=== PATIENT | male | born 1995 | race Hispanic/Latino ===

== ENCOUNTER 2019-03-07 19:54 | Emergency (ER) | payer BC ==
[2019-03-07] MEDS ORDERED: NA CHLORIDE 0.9% 1,000 ML ONE (20:49)
[2019-03-07] MEDS ORDERED: KETOROLAC 30 MG/ML INJ ONE (20:49)
[2019-03-07 21:00] LABS: Absolute Lymphocytes (CBC) 2.8 K/uL (0.7-4.9); Basophils % 1.2 % (0-1.3); Hematocrit 43.5 % (39.6-49.0); Lymphocytes % 33.1 % (15.3-44.8); Protime INR 0.97; RBC Red Blood Cell Count 4.79 M/uL (4.33-5.43)
[2019-03-07 21:15] LABS: ALT/SGPT 26 U/L (12-78); AST/SGOT 15 U/L (15-37); Albumin 4.1 g/dL (3.4-5.0); Alkaline Phosphatase 74 U/L (45-117); BUN Blood Urea Nitrogen 14 mg/dL (7-18); Bicarbonate 29 mmol/L (21-32); Bilirubin Direct < 0.1 mg/dL (0-0.2); Bilirubin Total 0.2 mg/dL (0.2-1.0); Glucose Level 109 mg/dL (74-106); Magnesium 2.1 mg/dL (1.8-2.4); NT PRO-BNP 11 pg/mL (<125); Potassium 3.6 mmol/L (3.5-5.1); Protein, Total 7.4 g/dL (6.4-8.2); Sodium Level 143 mmol/L (136-145); Troponin (Emerg Dept Use Only) < 0.02 ng/mL (0.0-0.045)
--- NOTE | 2019-03-07 23:27 | ER ---
Nurse's Notes [facility] Name: Sarbjit Riley Age: 23 yrs Sex: Male : 1995 Arrival Date: 03/07/2019 Time: 19:56 Bed 13 Private MD: Diagnosis: Other chest pain Presentation: 03/07 19:59 Presenting complaint: Patient states: "All day I've had this shortness of breath and I aj1 have this really bad pain when I cough right about here (patient points to center of chest) and when I touch my chest there it really hurts" Patient reports cough, congestion. Denies fever. Transition of care: patient was not received from another setting of care. Onset of symptoms was March 07, 2019. Risk Assessment: Do you want to hurt yourself or someone else? Patient reports no desire to harm self or others. Initial Sepsis Screen: Does the patient meet any 2 criteria? No. Patient's initial sepsis screen is negative. Does the patient have a suspected source of infection? Yes: Productive cough/pneumonia. Care prior to arrival: None. 19:59 Method Of Arrival: Ambulatory aj1 19:59 Acuity: INESSA 4 aj1 Triage Assessment: 20:01 General: Appears in no apparent distress. comfortable, Behavior is calm, cooperative, aj1 appropriate for age. Pain: Complains of pain in mid-sternal area Pain currently is 3 out of 10 on a pain scale. Neuro: Level of Consciousness is awake, alert, obeys commands, Oriented to person, place, time, situation. Cardiovascular: Patient's skin is warm and dry. Respiratory: Airway is patent Respiratory effort is even, unlabored, Respiratory pattern is regular, symmetrical. Historical: - Allergies: 20:01 No Known Allergies; aj1 - Home Meds: 20:01 Claritin Oral [Active]; Flonase Nasal [Active]; aj1 - PMHx: 20:01 seasonal allergies; aj1 - Immunization history:: Flu vaccine is not up to date. - Social history:: Smoking status: Patient/guardian denies using tobacco. - Ebola Screening: : Patient denies travel to an Ebola-affected area in the 21 days before illness onset. Screenin:15 Abuse screen: Denies threats or abuse. Nutritional screening: No deficits noted. jb4 Tuberculosis screening: No symptoms or risk factors identified. Fall Risk None identified. Assessment: 20:15 General: Appears in no apparent distress. uncomfortable, Behavior is calm, cooperative, jb4 appropriate for age. Pain: Complains of pain in chest Pain does not radiate. Pain currently is 3 out of 10 on a pain scale. Quality of pain is described as stabbing, Pain began 2-3 days ago. Is continuous. Neuro: Level of Consciousness is awake, alert, obeys commands, Oriented to person, place, time, situation. Cardiovascular: Patient's skin is warm and dry. Respiratory: Airway is patent Respiratory effort is even, unlabored, Respiratory pattern is regular, symmetrical. GI: No deficits noted. No signs and/or symptoms were reported involving the gastrointestinal system. : No deficits noted. No signs and/or symptoms were reported regarding the genitourinary system. EENT: No deficits noted. No signs and/or symptoms were reported regarding the EENT system. Derm: Skin is intact, Skin is pink, warm \\T\\ dry. Musculoskeletal: Circulation, motion, and sensation intact. Range of motion: intact in all extremities. 21:30 Reassessment: Patient appears in no apparent distress at this time. Patient and/or jb4 family updated on plan of care and expected duration. Pain level reassessed. Patient is alert, oriented x 3, equal unlabored respirations, skin warm/dry/pink. 22:30 Reassessment: Patient appears in no apparent distress at this time. Patient and/or jb4 family updated on plan of care and expected duration. Pain level reassessed. Patient is alert, oriented x 3, equal unlabored respirations, skin warm/dry/pink. 23:53 Reassessment: Patient appears in no apparent distress at this time. Patient and/or jb4 family updated on plan of care and expected duration. Pain level reassessed. Patient is alert, oriented x 3, equal unlabored respirations, skin warm/dry/pink. Vital Signs: 20:01 BP 136 / 87; Pulse 78; Resp 18; Temp 97.9; Pulse Ox 98% on R/A; Weight 75.75 kg (R); aj1 Height 5 ft. 6 in. (167.64 cm) (R); Pain 3/10; 21:45 BP 128 / 85; Pulse 57; Resp 16; Pulse Ox 98% on R/A; jb4 23:00 BP 110 / 71; Pulse 77; Resp 16; Pulse Ox 100% on R/A; jb4 20:01 Body Mass Index 26.95 (75.75 kg, 167.64 cm) aj1 ED Course: 19:56 Patient arrived in ED. cl3 20:00 Triage completed. aj1 20:01 Arm band placed on Patient placed in an exam room. aj1 20:05 Jensen Abad PA is PHCP. cp 20:05 Naresh Jean MD is Attending Physician. cp 20:06 Tom Maldonado, RN is Primary Nurse. jb4 20:15 Patient has correct armband on for positive identification. Bed in low position. Call jb4 light in reach. Side rails up X 1. Pulse ox on. NIBP on. 20:15 Patient maintains SpO2 saturation greater than 95% on room air. jb4 20:45 Inserted saline lock: 20 gauge in right antecubital area, using aseptic technique. Blood collected. 22:52 XRAY Chest Pa And Lat (2 Views) In Process Unspecified. EDMS 23:53 No provider procedures requiring assistance completed. IV discontinued, intact, jb4 bleeding controlled, No redness/swelling at site. Pressure dressing applied. Administered Medications: 20:50 Drug: NS 0.9% 1000 ml Route: IV; Rate: 1 bolus; Site: right antecubital; 22:00 Follow up: Response: No adverse reaction; IV Status: Completed infusion; IV Intake: jb4 1000ml 20:53 Drug: TORadol 30 mg Route: IVP; Site: right antecubital; 21:20 Follow up: Response: No adverse reaction; Pain is decreased jb4 Intake: 22:00 IV: 1000ml; Total: 1000ml. jb4 Outcome: 23:26 Discharge ordered by . cp 23:53 Discharged to home ambulatory, with significant other. jb4 23:53 Condition: stable 23:53 Discharge instructions given to patient, significant other, Instructed on discharge instructions, follow up and referral plans. medication usage, Demonstrated understanding of instructions, follow-up care, medications, Prescriptions given X 1. 23:55 Patient left the ED. jb4 Signatures: Dispatcher [employer] EDWA Rebeca Lange RN RN aj1 Jensen Abad PA PA cp Bryson, James, RN RN jb4 Habalo, Shahnaz Jenkins, Mariam cl3
--- NOTE | 2019-03-07 23:27 | EDPHYS ---
Physician Documentation [facility] Name: Sarbjit Riley Age: 23 yrs Sex: Male : 1995 Arrival Date: 03/07/2019 Time: 19:56 Bed 13 Private MD: ED Physician Naresh Jean HPI: 03/07 20:15 This 23 yrs old Male presents to ER via Ambulatory with complaints of Chest cp Pain, Shortness Of Breath. 20:15 The patient or guardian reports chest pain that is located primarily in the substernal cp area. 20:15 The pain does not radiate. Associated signs and symptoms: Pertinent positives: cp shortness of breath, Pertinent negatives: abdominal pain, diaphoresis, headache, lower extremity pain, lower extremity swelling, near syncope, syncope. The chest pain is described as sharp. Duration: The patient or guardian reports a single episode, that is still ongoing. Modifying factors: the symptoms are aggravated by cough, palpation of area. Severity of pain: in the emergency department the pain is unchanged despite home interventions. Historical: - Allergies: 20:01 No Known Allergies; aj1 - Home Meds: 20:01 Claritin Oral [Active]; Flonase Nasal [Active]; aj1 - PMHx: 20:01 seasonal allergies; aj1 - Immunization history:: Flu vaccine is not up to date. - Social history:: Smoking status: Patient/guardian denies using tobacco. - Ebola Screening: : Patient denies travel to an Ebola-affected area in the 21 days before illness onset. ROS: 20:20 Constitutional: Negative for body aches, chills, fever, poor PO intake. cp 20:20 Eyes: Negative for injury, pain, redness, and discharge. cp 20:20 ENT: Negative for drainage from ear(s), ear pain, sore throat, difficulty swallowing, difficulty handling secretions. 20:20 Cardiovascular: Positive for chest pain, Negative for edema, palpitations. 20:20 Respiratory: Positive for shortness of breath, Negative for cough, wheezing. 20:20 Abdomen/GI: Negative for abdominal pain, nausea, vomiting, and diarrhea, black/tarry stool, rectal bleeding. 20:20 Back: Negative for radiated pain. 20:20 Skin: Negative for rash. 20:20 Neuro: Negative for altered mental status, headache, weakness. 20:20 All other systems are negative. Exam: 20:20 ECG was reviewed by the Attending Physician. cp 20:25 Constitutional: The patient appears in no acute distress, alert, awake, cp non-diaphoretic, non-toxic, well developed, well nourished. 20:25 Head/Face: Normocephalic, atraumatic. cp 20:25 Eyes: Periorbital structures: Conjunctiva: normal, no exudate, no injection, Sclera: no appreciated abnormality, Lids and lashes: appear normal, bilaterally. 20:25 ENT: External ear(s): are unremarkable, Nose: is normal, Mouth: is normal, Posterior pharynx: is normal, airway is patent, no erythema, no exudate. 20:25 Chest/axilla: Inspection: normal, Palpation: crepitus, is not appreciated, tenderness, that is moderate, of the mid-sternal area, that partially reproduces the patient's complaints. 20:25 Cardiovascular: Rate: normal, Rhythm: regular, Pulses: Pulses are 2+ in right radial artery and left radial artery. Edema: is not appreciated, JVD: is not appreciated. 20:25 Respiratory: the patient does not display signs of respiratory distress, Respirations: normal, no use of accessory muscles, no retractions, no splinting, no tachypnea, labored breathing, is not present, Breath sounds: are clear throughout, no decreased breath sounds, no stridor, no wheezing. 20:25 Abdomen/GI: Inspection: abdomen appears normal, Bowel sounds: normal, in all quadrants, Palpation: abdomen is soft and non-tender, in all quadrants, rebound tenderness, is not appreciated, voluntary guarding, is not appreciated, involuntary guarding, is not appreciated. 20:25 Back: pain, is absent, ROM is normal. 20:25 Skin: no rash present. 20:25 Neuro: Orientation: to person, place \T\ time. Mentation: is normal, Motor: moves all fours, strength is normal. Vital Signs: 20:01 BP 136 / 87; Pulse 78; Resp 18; Temp 97.9; Pulse Ox 98% on R/A; Weight 75.75 kg (R); aj1 Height 5 ft. 6 in. (167.64 cm) (R); Pain 3/10; 21:45 BP 128 / 85; Pulse 57; Resp 16; Pulse Ox 98% on R/A; jb4 23:00 BP 110 / 71; Pulse 77; Resp 16; Pulse Ox 100% on R/A; jb4 20:01 Body Mass Index 26.95 (75.75 kg, 167.64 cm) aj1 MDM: 20:10 Patient medically screened. cp 21:00 Differential diagnosis: abnormal EKG, acute pericarditis, cholecystitis, Cholelithiasis cp costochondritis, esophagitis, gastritis, gastroesophageal reflux disease (GERD), peptic ulcer disease, pleurisy, pneumonia, pneumothorax, pulmonary embolus. 23:25 Data reviewed: vital signs, nurses notes, lab test result(s), EKG, radiologic studies, cp plain films, and as a result, I will discharge patient. 23:25 Test interpretation: by ED physician or midlevel provider: ECG, plain radiologic cp studies. 23:25 Counseling: I had a detailed discussion with the patient and/or guardian regarding: the cp historical points, exam findings, and any diagnostic results supporting the discharge/admit diagnosis, lab results, radiology results, to return to the emergency department if symptoms worsen or persist or if there are any questions or concerns that arise at home. Response to treatment: the patient's symptoms have markedly improved after treatment. Special discussion: Based on the patient's history, exam, and Dx evaluation, there is no indication for emergent intervention or inpatient Tx. It is understood by the patient/guardian that if the Sx's persist or worsen they need to return immediately for re-evaluation. 03/07 20:31 Order name: Basic Metabolic Panel; Complete Time: 21:18 cp 03/07 21:18 Interpretation: Normal except: CL 109; GLUC 109. cp 03/07 20:31 Order name: CBC with Diff; Complete Time: 21:18 cp 03/07 20:31 Order name: LFT's; Complete Time: 21:18 cp 03/07 20:31 Order name: Magnesium; Complete Time: 21:18 cp 03/07 20:31 Order name: NT PRO-BNP; Complete Time: 21:18 cp 03/07 20:31 Order name: PT-INR; Complete Time: 21:18 cp 03/07 20:05 Order name: EKG; Complete Time: 20:05 cp 03/07 20:05 Order name: EKG - Nurse/Tech; Complete Time: 20:28 cp 03/07 20:31 Order name: Troponin (emerg Dept Use Only); Complete Time: 21:18 cp 03/07 20:31 Order name: Cardiac monitoring; Complete Time: 20:47 03/07 20:31 Order name: IV Saline Lock; Complete Time: 20:47 03/07 21:45 Order name: XRAY Chest Pa And Lat (2 Views) 03/07 20:31 Order name: Labs collected and sent; Complete Time: 20:47 cp 03/07 20:31 Order name: O2 Per Protocol; Complete Time: 20:47 cp 03/07 20:31 Order name: O2 Sat Monitoring; Complete Time: 20:47 cp EC:20 Rate is 65 beats/min. Rhythm is regular. NC interval is normal. QRS interval is cp prolonged at 104 msec. QT interval is normal. Interpreted by me. Reviewed by me. Administered Medications: 20:50 Drug: NS 0.9% 1000 ml Route: IV; Rate: 1 bolus; Site: right antecubital; 22:00 Follow up: Response: No adverse reaction; IV Status: Completed infusion; IV Intake: jb4 1000ml 20:53 Drug: TORadol 30 mg Route: IVP; Site: right antecubital; 21:20 Follow up: Response: No adverse reaction; Pain is decreased jb4 Disposition: 03/08 06:13 Co-signature as Attending Physician, Naresh Jean MD. Disposition: 03/07/19 23:26 Discharged to Home. Impression: Other chest pain. - Condition is Stable. - Discharge Instructions: Nonspecific Chest Pain. - Prescriptions for ketorolac 10 mg Oral tablet - take 1 tablet by ORAL route every 6 hours As needed not to exceed 40 mg in 24hrs; 20 tablet. - Medication Reconciliation Form, Thank You Letter, Antibiotic Education, Prescription Opioid Use form. - Follow up: Private Physician; When: 2 - 3 days; Reason: Worsening of condition. - Problem is new. - Symptoms have improved. Signatures: Dispatcher [employer] EDMS Rebeca Lange RN RN aj1 Jensen Abad PA PA Tom Crisostomo RN RN jb4 Shahnaz Chavez Naresh Jean MD MD Corrections: (The following items were deleted from the chart) 10/23 23:55 23:26 03/07/2019 23:26 Discharged to Home. Impression: Other chest pain. Condition is jb4 Stable. Forms are Medication Reconciliation Form, Thank You Letter, Antibiotic Education, Prescription Opioid Use. Follow up: Private Physician; When: 2 - 3 days; Reason: Worsening of condition. Problem is new. Symptoms have improved. cp
[2019-03-08 00:41] VITALS: TEMP 97.9
[2019-03-08 00:43] VITALS: BP 110/71; O2SAT 100
--- NOTE | 2019-03-08 07:27 | RAD REPORT ---
EXAM DESCRIPTION: RAD - Chest Pa And Lat (2 Views) - 03/07/2019 10:52 pm CLINICAL HISTORY: CHEST PAIN, shortness of breath COMPARISON: None. TECHNIQUE: PA and lateral views of the chest were obtained. FINDINGS: The lungs are clear. Heart size is normal and central vasculature is within normal limit s. No pleural effusion or pneumothorax seen. No acute bony finding noted. No aortic abnormality. IMPRESSION: No acute cardiopulmonary process.
--- NOTE | 2019-03-08 08:29 | EKG ---
Test Date: 2019-03-07 Test Time: 20:14:29 Automotive Lube Technician: ANIYAH MEASUREMENT RESULTS: Intervals: Rate: 65 MS: 158 QRSD: 104 QT: 356 QTc: 370 Omega: P: 62 MS: 158 QRS: 57 T: 54 INTERPRETIVE STATEMENTS: Normal sinus rhythm Incomplete right bundle branch block Borderline ECG No previous ECG available for comparison Electronically Signed On 03-08-19 08:27:38 CDT by Michelet Ybarra
== END 2019-03-07 23:55 | disposition home or self-care (01) ==
LOC: ER 19:54
DX: R07.89 Other chest pain (principal); J30.2 Other seasonal allergic rhinitis
CPT/HCPCS: 96361; 93005; 85025; 80048; 36415; 83735; 85610; 80076; 84484; 83880; 71046; 96374; 99284; J7030

== ENCOUNTER 2019-03-28 12:30 | Emergency (ER) | payer BC ==
--- NOTE | 2019-03-28 14:03 | EDPHYS ---
Physician Documentation [facility] Name: Sarbjit Riley Age: 23 yrs Sex: Male : 1995 Arrival Date: 03/28/2019 Time: 12:33 Bed 23 Private MD: ED Physician Yann Andrea HPI: 03/28 14:29 This 23 yrs old Male presents to ER via Ambulatory with complaints of Fever, kb Neck Swelling. 14:31 The patient or guardian complains of swelling. The symptoms are located on the right kb posterior aspect of neck and right lateral aspect of neck. Onset: The symptoms/episode began/occurred this morning. Context: The problem was sustained at home, The neck injury/problem resulted from from unknown cause. Associated signs and symptoms: Pertinent positives: fever, body aches. The pain does not radiate. Modifying factors: The symptoms are alleviated by nothing. the symptoms are aggravated by nothing. Severity of symptoms: At their worst the symptoms were moderate, in the emergency department the symptoms are unchanged. The patient has not experienced similar symptoms in the past. The patient has not recently seen a physician. Historical: - Allergies: 12:45 No Known Allergies; hb - Home Meds: 12:45 Claritin Oral [Active]; Flonase Nasal [Active]; hb - PMHx: 12:45 seasonal allergies; hb - PSHx: 12:45 Heart ablation; hb - Immunization history:: Adult Immunizations up to date. - Social history:: Smoking status: Patient/guardian denies using tobacco. - Ebola Screening: : No symptoms or risks identified at this time. ROS: 14:29 ENT: Negative for injury, pain, and discharge, Cardiovascular: Negative for chest pain, kb palpitations, and edema, Respiratory: Negative for shortness of breath, cough, wheezing, and pleuritic chest pain, Abdomen/GI: Negative for abdominal pain, nausea, vomiting, diarrhea, and constipation, Back: Negative for injury and pain, MS/Extremity: Negative for injury and deformity, Skin: Negative for injury, rash, and discoloration, Neuro: Negative for headache, weakness, numbness, tingling, and seizure. 14:29 Constitutional: Positive for body aches, fever. 14:29 Neck: Positive for swollen nodes. Exam: 14:29 Constitutional: This is a well developed, well nourished patient who is awake, alert, kb and in no acute distress. Head/Face: Normocephalic, atraumatic. ENT: Nares patent. No nasal discharge, no septal abnormalities noted. Tympanic membranes are normal and external auditory canals are clear. Oropharynx with no redness, swelling, or masses, exudates, or evidence of obstruction, uvula midline. Mucous membranes moist. Chest/axilla: Normal chest wall appearance and motion. Nontender with no deformity. No lesions are appreciated. Cardiovascular: Regular rate and rhythm with a normal S1 and S2. No gallops, murmurs, or rubs. Normal PMI, no JVD. No pulse deficits. Respiratory: Lungs have equal breath sounds bilaterally, clear to auscultation and percussion. No rales, rhonchi or wheezes noted. No increased work of breathing, no retractions or nasal flaring. Abdomen/GI: Soft, non-tender, with normal bowel sounds. No distension or tympany. No guarding or rebound. No evidence of tenderness throughout. Skin: Warm, dry with normal turgor. Normal color with no rashes, no lesions, and no evidence of cellulitis. MS/ Extremity: Pulses equal, no cyanosis. Neurovascular intact. Full, normal range of motion. Neuro: Awake and alert, GCS 15, oriented to person, place, time, and situation. Cranial nerves II-XII grossly intact. Motor strength 5/5 in all extremities. Sensory grossly intact. Cerebellar exam normal. Normal gait. 14:29 Neck: Lymph nodes: lymphadenopathy is appreciated, posterior cervical nodes. Vital Signs: 12:45 BP 120 / 88; Pulse 89; Resp 16; Temp 98.6(O); Pulse Ox 100% on R/A; Weight 75.75 kg; hb Height 5 ft. 6 in. (167.64 cm); Pain 2/10; 14:53 BP 109 / 79; Pulse 79; Resp 17 S; Temp 98.9(O); Pulse Ox 100% on R/A; ca1 12:45 Body Mass Index 26.95 (75.75 kg, 167.64 cm) hb MDM: 13:00 Patient medically screened. kb 14:30 Data reviewed: vital signs, nurses notes. Data interpreted: Pulse oximetry: on room air kb is 100 %. Interpretation: normal. Counseling: I had a detailed discussion with the patient and/or guardian regarding: the historical points, exam findings, and any diagnostic results supporting the discharge/admit diagnosis, lab results, the need for outpatient follow up, a family practitioner, to return to the emergency department if symptoms worsen or persist or if there are any questions or concerns that arise at home. 03/28 13:05 Order name: Flu; Complete Time: 13:39 kb 03/28 13:05 Order name: Strep; Complete Time: 13:41 kb 03/28 13:05 Order name: [place] Screen Profile; Complete Time: 13:49 kb 03/28 13:40 Order name: Throat Culture EDMS Administered Medications: No medications were administered Disposition: 15:45 Co-signature as Attending Physician, Yann Andrea MD. rn Disposition: 03/28/19 14:02 Discharged to Home. Impression: Acute lymphadenitis of face, head and neck. - Condition is Stable. - Discharge Instructions: Lymphadenopathy. - Medication Reconciliation Form, Thank You Letter, Antibiotic Education, Prescription Opioid Use form. - Follow up: Emergency Department; When: As needed; Reason: Worsening of condition. Follow up: Private Physician; When: 2 - 3 days; Reason: Recheck today's complaints, Continuance of care, Re-evaluation by your physician. Signatures: Dispatcher [employer] EDMS Gloria Choi, CONTINUITY EDITOR-C CONTINUITY EDITOR-Ckb Yann Andrea MD MD rn Baxter, Heather, RN RN Wendy Ho RN RN ca1 Corrections: (The following items were deleted from the chart) 14:54 14:02 03/28/2019 14:02 Discharged to Home. Impression: Acute lymphadenitis of face, ca1 head and neck. Condition is Stable. Forms are Medication Reconciliation Form, Thank You Letter, Antibiotic Education, Prescription Opioid Use. Follow up: Emergency Department; When: As needed; Reason: Worsening of condition. Follow up: Private Physician; When: 2 - 3 days; Reason: Recheck today's complaints, Continuance of care, Re-evaluation by your physician. kb
--- NOTE | 2019-03-28 14:03 | ER ---
Nurse's Notes [facility] Name: Sarbjit Riley Age: 23 yrs Sex: Male : 1995 Arrival Date: 03/28/2019 Time: 12:33 Bed 23 Private MD: Diagnosis: Acute lymphadenitis of face, head and neck Presentation: 03/28 12:44 Presenting complaint: Right sided neck swelling upon waking today, subjective fever hb yesterday. Transition of care: patient was not received from another setting of care. Onset of symptoms was March 27, 2019. Risk Assessment: Do you want to hurt yourself or someone else? Patient reports no desire to harm self or others. Care prior to arrival: None. 12:44 Method Of Arrival: Ambulatory hb 12:44 Acuity: INESSA 4 hb 13:05 Initial Sepsis Screen: Does the patient meet any 2 criteria? No. Patient's initial ca1 sepsis screen is negative. Does the patient have a suspected source of infection? No. Patient's initial sepsis screen is negative. Historical: - Allergies: 12:45 No Known Allergies; hb - Home Meds: 12:45 Claritin Oral [Active]; Flonase Nasal [Active]; hb - PMHx: 12:45 seasonal allergies; hb - PSHx: 12:45 Heart ablation; hb - Immunization history:: Adult Immunizations up to date. - Social history:: Smoking status: Patient/guardian denies using tobacco. - Ebola Screening: : No symptoms or risks identified at this time. Screenin:02 Abuse screen: Denies threats or abuse. Denies injuries from another. Nutritional ca1 screening: No deficits noted. Tuberculosis screening: No symptoms or risk factors identified. Fall Risk None identified. Assessment: 13:02 General: Appears in no apparent distress. comfortable, Behavior is calm, cooperative, ca1 appropriate for age, Reports fever for 12-24 hours. Pain: Denies pain. Neuro: Level of Consciousness is awake, alert, obeys commands, Oriented to person, place, time, situation. Respiratory: Airway is patent Respiratory effort is even, unlabored, Respiratory pattern is regular, symmetrical, Breath sounds are clear bilaterally. Denies cough. GI:. EENT: Throat has enlarged tonsils bilaterally. EENT: neck is swollen on the R side. Pt reports that it is tender to touch. Denies sore throat or difficulty swallowing. Derm: Skin is intact, is healthy with good turgor, Skin is pink, warm \T\ dry. Musculoskeletal: Circulation, motion, and sensation intact. Capillary refill < 3 seconds, Range of motion: intact in all extremities. 14:53 Reassessment: Patient appears in no apparent distress at this time. Patient is alert, ca1 oriented x 3, equal unlabored respirations, skin warm/dry/pink. Vital Signs: 12:45 BP 120 / 88; Pulse 89; Resp 16; Temp 98.6(O); Pulse Ox 100% on R/A; Weight 75.75 kg; hb Height 5 ft. 6 in. (167.64 cm); Pain 2/10; 14:53 BP 109 / 79; Pulse 79; Resp 17 S; Temp 98.9(O); Pulse Ox 100% on R/A; ca1 12:45 Body Mass Index 26.95 (75.75 kg, 167.64 cm) hb ED Course: 12:33 Patient arrived in ED. mr 12:34 Gloria Choi, CAROLANN is PHCP. kb 12:34 Yann Andrea MD is Attending Physician. kb 12:45 Triage completed. hb 12:45 Arm band placed on. hb 13:00 Wendy Ho, RN is Primary Nurse. ca1 13:02 Patient has correct armband on for positive identification. Bed in low position. Call ca1 light in reach. Side rails up X 1. Pulse ox on. NIBP on. 13:02 No provider procedures requiring assistance completed. Patient did not have IV access ca1 during this emergency room visit. 13:13 Flu Sent. ca1 13:13 Strep Sent. ca1 13:13 Atkinson Screen Profile Sent. ca1 13:14 Initial lab(s) drawn, by ne, sent to lab. Flu and/or RSV swab sent to lab. ca1 13:29 Flu Sent. ca1 13:29 Strep Sent. ca1 13:29 Atkinson Screen Profile Sent. ca1 Administered Medications: No medications were administered Outcome: 14:02 Discharge ordered by . kb 14:54 Discharged to home ambulatory, with significant other. ca1 14:54 Condition: stable 14:54 Discharge instructions given to patient, Instructed on discharge instructions, follow up and referral plans. Demonstrated understanding of instructions, follow-up care. 14:54 Patient left the ED. ca1 Signatures: Gloria Choi, Kiarra Avalos mr Aura Bettencourt, RN RN hb Wendy Ho RN RN ca1
== END 2019-03-28 14:54 | disposition home or self-care (01) ==
LOC: ER 12:30
DX: L04.0 Acute lymphadenitis of face, head and neck (principal); J30.2 Other seasonal allergic rhinitis
CPT/HCPCS: 36415; 86308; 87070; 87081; 87804; 99283

== ENCOUNTER 2019-03-30 15:50 | Emergency (ER) | payer BC ==
[2019-03-30] MEDS ORDERED: ACETAMINOPHEN 325 MG TABLET ONE (16:46)
[2019-03-30 16:48] LABS: Absolute Lymphocytes (CBC) 0.6 K/uL (0.7-4.9); Basophils % 0.2 % (0-1.3); Hematocrit 40.6 % (39.6-49.0); Lymphocytes % 5.2 % (15.3-44.8); MPV 8.4 fL (7.6-11.3); RBC Red Blood Cell Count 4.58 M/uL (4.33-5.43)
--- NOTE | 2019-03-30 16:54 | RAD REPORT ---
EXAM DESCRIPTION: CT - Stone Protocol - 03/30/2019 4:36 pm CLINICAL HISTORY: Abdominal pain. Right flank pain COMPARISON: None. TECHNIQUE: Computed axial tomography of the abdomen pelvis was obtained without oral or IV contrast. Lack of IV and oral contrast limits evaluation of solid organs, bowel, and vessels. Coronal reformat miller images were obtained and reviewed. All CT scans are performed using dose optimization technique as appropriate and may include automated exposure control or mA/KV adjustment according to patient size. FINDINGS: A renal calculus is not seen. An ureteral calculus is not noted. A bladder calculus is not present. The liver, spleen, pancreas and adrenals appear grossly normal There is no evidence of diverticulitis. The appendix appears normal Trace amount of free fluid within the pelvis IMPRESSION: Negative for a genitourinary calculus Trace amount of free fluid within the pelvis
[2019-03-30 17:05] LABS: Albumin 3.6 g/dL (3.4-5.0); Bilirubin Direct 0.2 mg/dL (0-0.2); Bilirubin Total 0.5 mg/dL (0.2-1.0); Potassium 3.5 mmol/L (3.5-5.1)
[2019-03-30 17:12] LABS: Urine Blood 2+ (NEG); Urine Glucose NEGATIVE (NEG); Urine Protein 2+ (NEG)
[2019-03-30] MEDS ORDERED: KETOROLAC 30 MG/ML INJ ONE (17:40)
--- NOTE | 2019-03-30 18:12 | EDPHYS ---
Physician Documentation [facility] Name: Sarbjit Riley Age: 23 yrs Sex: Male : 1995 Arrival Date: 03/30/2019 Time: 15:52 Bed 24 Private MD: ED Physician Crow Arellano HPI: 03/30 16:16 This 23 yrs old Male presents to ER via Ambulatory with complaints of Possible jmm Kidney Stone, Fever. 16:16 The patient complains of pain in the right flank. Onset: The symptoms/episode jmm began/occurred gradually. Modifying factors: The symptoms are alleviated by nothing. the symptoms are aggravated by nothing. Associated signs and symptoms: Pertinent positives: fever. This is a 23 year old male with no chronic medical conditions that presents to the ED with complaints of right flank pain beginning this past Tuesday with fever. Evaluated in the ED and diagnosed with a viral infection. Patient states having a sore throat. . Historical: - Allergies: 15:56 No Known Allergies; tw2 - Home Meds: 15:56 Claritin Oral [Active]; Flonase Nasal [Active]; tw2 - PMHx: 15:56 seasonal allergies; tw2 - PSHx: 15:56 Heart ablation; tw2 - Immunization history:: Adult Immunizations. - Social history:: Smoking status: . - Ebola Screening: : Patient denies travel to an Ebola-affected area in the 21 days before illness onset. ROS: 16:16 Constitutional: Positive for fever. jmm 16:16 ENT: Positive for sore throat. 16:16 Back: Positive for flank pain, on the right. 16:16 All other systems are negative. Exam: 16:16 Constitutional: This is a well developed, well nourished patient who is awake, alert, jmm and in no acute distress. Head/Face: atraumatic. Eyes: EOMI, no conjunctival erythema appreciated ENT: Moist Mucus Membranes Neck: Trachea midline, Supple Chest/axilla: Normal chest wall appearance and motion. Cardiovascular: Regular rate and rhythm. No edema appreciated Respiratory: Normal respirations, no respiratory distress appreciated Abdomen/GI: Non distended, soft Back: Normal ROM 16:16 Skin: General appearance color normal MS/ Extremity: Moves all extremities, no obvious deformities appreciated, no edema noted to the lower extremities Neuro: Awake and alert, normal gait Psych: Behavior is normal, Mood is normal, Patient is cooperative and pleasant 16:16 ENT: Posterior pharynx: swelling, that is moderate, erythema, that is moderate. Vital Signs: 15:55 BP 114 / 93; Pulse 123; Resp 19; Temp 100.5(O); Pulse Ox 100% on R/A; Weight 75.75 kg tw2 (R); Height 5 ft. 6 in. (167.64 cm); Pain 7/10; 16:55 BP 115 / 83; Pulse 115; Resp 18; Pulse Ox 100% ; wh 18:00 BP 116 / 80; Pulse 104; Resp 18; Temp 98.8; Pulse Ox 100% on R/A; wh 15:55 Body Mass Index 26.95 (75.75 kg, 167.64 cm) tw2 MDM: 16:15 Patient medically screened. [facility] 18:09 Data reviewed: vital signs, nurses notes. Counseling: I had a detailed discussion with [facility] the patient and/or guardian regarding: the historical points, exam findings, and any diagnostic results supporting the discharge/admit diagnosis, lab results, radiology results, the need for outpatient follow up, to return to the emergency department if symptoms worsen or persist or if there are any questions or concerns that arise at home. ED course: Patient is alert and non toxic in appearance in the ED. CT negative. Symptoms appear to be due to pharyngitis. . 03/30 16:16 Order name: Basic Metabolic Panel; Complete Time: 17:06 [facility] 03/30 16:16 Order name: CBC with Diff [facility] 03/30 16:16 Order name: Creatinine for Radiology; Complete Time: 17:06 [facility] 03/30 16:16 Order name: Hepatic Function; Complete Time: 17:06 [facility] 03/30 16:16 Order name: Lipase; Complete Time: 17:06 [facility] 03/30 16:16 Order name: Park Screen Profile; Complete Time: 17:15 [facility] 03/30 16:16 Order name: IV Saline Lock; Complete Time: 16:36 [facility] 03/30 16:16 Order name: Labs collected and sent; Complete Time: 16:36 [facility] 03/30 16:16 Order name: Strep; Complete Time: 16:56 [facility] 03/30 16:16 Order name: CT Stone Protocol; Complete Time: 16:57 [facility] 03/30 16:39 Order name: Urine Dipstick--Ancillary (enter results); Complete Time: 17:15 eb 03/30 17:43 Order name: Throat Culture [facility] 03/30 16:16 Order name: Urine Dipstick-Ancillary (obtain specimen); Complete Time: 16:36 [facility] Administered Medications: 16:50 Drug: Tylenol 650 mg Route: PO; 19:52 Follow up: Response: No adverse reaction; Temperature is decreased 17:41 Drug: Ketorolac 30 mg Route: IVP; Site: right antecubital; wh 19:52 Follow up: Response: No adverse reaction; Pain is decreased Disposition: 03/30/19 18:11 Discharged to Home. Impression: Acute pharyngitis. - Condition is Stable. - Discharge Instructions: Pharyngitis. - Prescriptions for Augmentin 875- 125 mg Oral Tablet - take 1 tablet by ORAL route every 12 hours for 10 days; 20 tablet. - Medication Reconciliation Form, Thank You Letter, Antibiotic Education, Prescription Opioid Use, Work release form form. - Follow up: Private Physician; When: 2 - 3 days; Reason: Recheck today's complaints, Continuance of care, Re-evaluation by your physician. Addendum: 04/03/2019 06:32 Co-signature as Attending Physician, Crow Arellano MD I agree with the assessment and k dr plan of care. Signatures: Dispatcher [employer] [facility] Crow Arellano MD MD [facility] Jorje Zelaya PA PA [facility] Charo Blank RN RN 2 Shahnaz Chavez Corrections: (The following items were deleted from the chart) 03/30 18:29 18:11 03/30/2019 18:11 Discharged to Home. Impression: Acute pharyngitis. Condition is wh Stable. Forms are Work release form, Medication Reconciliation Form, Thank You Letter, Antibiotic Education, Prescription Opioid Use. Follow up: Private Physician; When: 2 - 3 days; Reason: Recheck today's complaints, Continuance of care, Re-evaluation by your physician. [facility]
--- NOTE | 2019-03-30 18:12 | ER ---
Nurse's Notes [facility] Name: Sarbjit Riley Age: 23 yrs Sex: Male : 1995 Arrival Date: 03/30/2019 Time: 15:52 Bed 24 Private MD: Diagnosis: Acute pharyngitis Presentation: 03/30 15:54 Presenting complaint: Patient states: Tuesday night, i started feeling fatigued, then twTuesday i felt drained, my back hurts. Transition of care: patient was not received from another setting of care. Onset of symptoms was March 30, 2019. Risk Assessment: Do you want to hurt yourself or someone else? Patient reports no desire to harm self or others. Initial Sepsis Screen: Does the patient meet any 2 criteria? No. Patient's initial sepsis screen is negative. Does the patient have a suspected source of infection? No. Patient's initial sepsis screen is negative. Care prior to arrival: None. 15:54 Method Of Arrival: Ambulatory tw2 15:54 Acuity: INESSA 3 tw2 15:56 Presenting complaint: Patient states: also my tonsils are super swollen and my throat tw2 is sore. Triage Assessment: 15:56 General: Appears in no apparent distress. Behavior is calm, cooperative, appropriate tw2 for age. Pain: Complains of pain in back, uvula, left aspect of posterior pharynx and right aspect of posterior pharynx. GI: Reports lower abdominal pain, upper abdominal pain. Historical: - Allergies: 15:56 No Known Allergies; tw2 - Home Meds: 15:56 Claritin Oral [Active]; Flonase Nasal [Active]; tw2 - PMHx: 15:56 seasonal allergies; tw2 - PSHx: 15:56 Heart ablation; tw2 - Immunization history:: Adult Immunizations. - Social history:: Smoking status: . - Ebola Screening: : Patient denies travel to an Ebola-affected area in the 21 days before illness onset. Screenin:57 Abuse screen: Denies threats or abuse. Nutritional screening: No deficits noted. tw2 Tuberculosis screening: No symptoms or risk factors identified. Fall Risk None identified. Assessment: 16:05 General: Appears in no apparent distress. Behavior is calm, cooperative, appropriate wh for age. Pain: Complains of pain in lower back Pain does not radiate. Pain currently is 4 out of 10 on a pain scale. Quality of pain is described as aching, Pain began 2-3 days ago. Neuro: Level of Consciousness is awake, alert, obeys commands, Oriented to person, place, time, situation, Appropriate for age. Cardiovascular: Heart tones S1 S2. Respiratory: Airway is patent Respiratory effort is even, unlabored, Respiratory pattern is regular, symmetrical. GI: Abdomen is flat, non-distended, Bowel sounds present X 4 quads. Abd is soft and non tender X 4 quads. : No signs and/or symptoms were reported regarding the genitourinary system. EENT: No signs and/or symptoms were reported regarding the EENT system. Derm: Skin is intact, is healthy with good turgor, Skin is pink, warm \T\ dry. normal. Musculoskeletal: Circulation, motion, and sensation intact. 16:55 Reassessment: Patient appears in no apparent distress at this time. No changes from previously documented assessment. Patient and/or family updated on plan of care and expected duration. Pain level reassessed. Patient is alert, oriented x 3, equal unlabored respirations, skin warm/dry/pink. 18:15 Reassessment: Patient appears in no apparent distress at this time. No changes from previously documented assessment. Patient and/or family updated on plan of care and expected duration. Pain level reassessed. Patient is alert, oriented x 3, equal unlabored respirations, skin warm/dry/pink. Patient states feeling better. Patient states symptoms have improved. Vital Signs: 15:55 BP 114 / 93; Pulse 123; Resp 19; Temp 100.5(O); Pulse Ox 100% on R/A; Weight 75.75 kg tw2 (R); Height 5 ft. 6 in. (167.64 cm); Pain 7/10; 16:55 BP 115 / 83; Pulse 115; Resp 18; Pulse Ox 100% ; wh 18:00 BP 116 / 80; Pulse 104; Resp 18; Temp 98.8; Pulse Ox 100% on R/A; wh 15:55 Body Mass Index 26.95 (75.75 kg, 167.64 cm) tw2 ED Course: 15:52 Patient arrived in ED. as 15:55 Triage completed. tw2 15:55 Arm band placed on. tw2 15:57 Bed in low position. Call light in reach. tw2 15:58 Shahnaz Chavez is Primary Nurse. 16:10 Jorje Zelaya PA is PHCP. [facility] 16:10 Crow Arellano MD is Attending Physician. [facility] 16:24 Radiology exam delayed due to IV insertion attempt and/or patient not having vm2 appropriate IV at this time. 16:35 Inserted saline lock: 20 gauge in right antecubital area, using aseptic technique. Blood collected. 16:37 CT Stone Protocol In Process Unspecified. EDMS 18:25 No provider procedures requiring assistance completed. IV discontinued, intact, wh bleeding controlled, No redness/swelling at site. Administered Medications: 16:50 Drug: Tylenol 650 mg Route: PO; 19:52 Follow up: Response: No adverse reaction; Temperature is decreased 17:41 Drug: Ketorolac 30 mg Route: IVP; Site: right antecubital; 19:52 Follow up: Response: No adverse reaction; Pain is decreased Outcome: 18:11 Discharge ordered by . [facility] 18:25 Discharged to home ambulatory, with friend. 18:25 Condition: stable 18:25 Discharge instructions given to patient, Instructed on discharge instructions, follow up and referral plans. medication usage, POC Pharyngitis Demonstrated understanding of instructions, follow-up care, medications, POC Prescriptions given X 1. 18:29 Patient left the ED. Signatures: Dispatcher [employer] EDMS Jorje Zelaya PA PA jmm Martinez, Amelia as Wise, Tara, RN RN tw2 [facility] Shahnaz Chavez
[2019-03-30 19:11] VITALS: TEMP 100.5; O2SAT 100
[2019-03-30 19:17] VITALS: BP 115/83
[2019-03-30 20:03] LABS: Blood Morphology Comment NOT SEEN (NOT SEEN); Platelet Estimate ADEQ
== END 2019-03-30 18:29 | disposition home or self-care (01) ==
LOC: ER 15:50
DX: J02.9 Acute pharyngitis, unspecified (principal); J30.2 Other seasonal allergic rhinitis
CPT/HCPCS: 36415; 74176; 76377; 80048; 80076; 81003; 83690; 85025; 86308; 87070; 87081